=== PATIENT | female | born 1930 | race Caucasian/White ===

== ENCOUNTER 2019-01-10 13:03 | Inpatient (IN) ==
--- NOTE | 2019-01-10 14:26 | PROVIDER DOCUMENTATION ---
HPI-General Adult - General Chief Complaint: Weakness Stated Complaint: WEAKNESS Time Seen by Provider: 01/10/19 14:06 Source: patient Allergies/Adverse Reactions: Patient Allergies Allergy/AdvReac Type Severity Reaction Status Date / Time No Known Allergies Allergy Verified 01/10/19 19:16 Home Medications: Home Medication List Medication Instructions Recorded Confirmed Last Taken Type Aspirin 1 tab PO DAILY 01/10/19 01/10/19 Unknown History - History of Present Illness -Gen Adult Nature of Presenting Problems: Patient is an 88 yowf who complains of generalized weakness, low appetite, nausea after eating and fatigue x "several weeks" States she developed right- sided chest pain today. Denies fever or any other complaints. She is non-toxic in appearance. Review of Systems - Adult - REVIEW OF SYSTEMS - ADULT Constitutional: reports: no symptoms reported. denies: fever Eyes: reports: no symptoms reported Ears, Nose, Mouth & Throat: reports: no symptoms reported Cardiovascular: reports: see HPI Respiratory: reports: no symptoms reported Gastrointestinal: reports: see HPI Genitourinary: reports: no symptoms reported Musculoskeletal: reports: see HPI (gen weakness) Integumentary: reports: no symptoms reported Neurological: reports: no symptoms reported Psychiatric: reports: no symptoms reported Endocrine: reports: no symptoms reported Hematologic/Lymphatic: reports: no symptoms reported Allergic/Immunologic: reports: no symptoms reported All Other Systems: Reviewed and Negative Past History - Adult - PAST MEDICAL HISTORY-ADULT Review of Records: reports: Old Records Reviewed, Nursing Assessment Review, Medications Reviewed, Social history reviewed & non-contributory. Major Childhood Illnesses: reports: denies history Cardiovascular: reports: denies history Respiratory: reports: denies history Gastrointestinal: reports: denies history Obstetrical/Gynecological: reports: denies history Genitourinary: reports: denies history Musculoskeletal: reports: denies history Neurological: reports: denies history Endocrine/Immune: reports: denies history Other Conditions: reports: denies history - PRIOR SURGERIES/PROCEDURES Surgical/Procedure History: reports: reviewed, not pertinent - FAMILY HISTORY Family History: reviewed, not pertinent - SOCIAL HISTORY Smoking: non-smoker Physical Exam-General - PHYSICAL EXAM-ADULT Initial Vital Signs Reviewed: Yes - CONSTITUTIONAL General Appearance: alert, no apparent distress. negative: lethargic, slow to respond - EYES Eyes: PERRL/EOMI, pink conjunctivae - HEAD, EARS, NOSE, MOUTH & THROAT HENMT: normocephalic/atraumatic, moist mucous membranes - NECK Neck: full range of motion, supple, normal inspection - RESPIRATORY Respiratory: chest non-tender, lungs clear, normal breath sounds, no respiratory distress, no accessory muscle use - CARDIOVASCULAR Cardiovascular: normal peripheral pulses, regular rate, rhythm, no edema, no gallop, no JVD, no murmur - GASTROINTESTINAL (ABDOMEN) Abdominal Exam: normal bowel sounds, non tender, soft. negative: distended, guarding, rigid, rebound, tenderness, hernia, mass - MUSCULOSKELETAL Back Exam: normal inspection Extremity: normal range of motion, non-tender, normal inspection - SKIN Integumentary: normal color, warm/dry. negative: cyanosis, diaphoresis, ja undice, mottled, pallor - NEUROLOGIC Neurologic: control systems designer II-XII nml as tested, grossly normal, no motor/sensory deficits. negative: aphasia, facial droop, focal weakness, motor weakness, sensory deficit - PSYCHIATRIC Psych/Mental Status: normal mood/affect, normal thought content, normal thought process, oriented x 3 Progress - PLAN OF CARE/RESULTS Progress/Plan/Lab Results: Vital Signs - 8 hr 01/10/19 13:08 Temperature 98.1 F Pulse Rate 107 H Respiratory Rate 20 Blood Pressure 161/83 O2 Sat by Pulse Oximetry 98 Result Diagrams: 01/10/19 13:21 01/10/19 13:21 - REASSESSMENT Reassessment #1 Time Reassessed: 19:24 Status: other (Admitting HPS paged. Pt in agreement with admission plan.) - EKG 1 Time of EKG reading by physician:: 13:15 EKG Read and Signed by:: Carlos Yung EKG Interpretation (*Must complete 3 of following elements*): Abnormal Rate: 100 Rhythm: SR- poss. left atrial enlargement QRS: normal - XRAY 1 XRAY Study: Chest ([facility] - [address], [address], [place] [address] [facility] - [address] [place] [address] Department of Imaging Patient: MERCY RANGEL LAD Date: 01/10/19#: [id number] : 1930DM Status: PRE ERAcct#: [id number] Age/Sex: 88/FRoom/Bed: Loc: ED Ordering Physician: Ashkan Blancas Family Physician: None,PCP Reason for Procedure: weakness, right cp ____ Signed EXAM: CHEST-2 VIEWS INDICATION: weakness, right cp TECHNIQUE: 2 views COMPARISON: None. FINDINGS: The lungs are grossly clear. There is no discrete pleural fluid collection or pneumothorax. The cardiomediastinal silhouette and central vasculature are grossly unremarkable. IMPRESSION: No evidence of acute pathology by plain radiograph. Electronically signed by Zheng Shelton 01/10/2019 5:44 PM 01/10/191743 Interpreting Physician: Zheng Shelton MD Dictated Date/Time: 01/10/191743 cc: Ashkan Blancas; None,PCP) - CT/MRI 1 CT Study: Angiogram ([facility] - [address] [place] [address] [address] [id number] [facility] - [address] [place] [address] Department of Imaging Patient: MERCY RANGEL Date: 01/10/19#: [id number] : 1ADM Status: PRE ERAt#: [id number] Age/Sex: 88/FRoom/Bed: Loc: ED Ordering Physician: Ashkan Blancas Family Physician: None,PCP Reason for Procedure: elevated d-dimer, R cp, l eukocytosis ___ Signed EXAM: CT ANGIOGRAM PULMONARY ARTERIES - 01/10/2019 HISTORY: elevated d-dimer, R cp, leukocytosis TECHNIQUE: CT angiogram pulmonary arteries with intravenous contrast. Axial, coronal, and 3-D MIP images are obtained. COMPARISON: None. FINDINGS: There are pulmonary emboli at segmental and subsegmental branches at the right lower lobe. There is a pulmonary embolus and subsegmental branch of the left lower lobe. There is a small embolus at the superior left upper lobe. There are no large central pulmonary emboli identified. There is no indication of aortic dissection. There is some dependent atelectasis. There is no dense consolidation, pleural effusion, or pneumothorax There is a 7.5 x 4.5 mm mildly lobulated nodular opacity at the lateral left base. There is a large hiatal hernia. IMPRESSION: Pulmonary emboli at right lower lobe. Small pulmonary emboli at left lower and left upper lobes. Other incidental/nonacute findings as detailed above. This report was discussed with Dr. Aparicio on 01/10/2019 at 7:10 PM and was readback. Electronically signed by Zach Cartagena 01/10/2019 7:11 PM 01/10/19 1911 Interpreting Physician: Zach Cartagena MD Dictated Date/Time: 01/10/191855 cc: Ashkan Blancas; None,PCP) - CONSULTS/PCP/HOSPITALIST Notification #1 *Consult/PCP/Hospitalist*: Dr. Quiñones Time Discussed: 19:51 Reason/Comments: admission- pe, weakness Consult Disposition: Admit Departure - Departure Date of Disposition Decision: 01/10/19 Time of Disposition Decision: 19:24 DIAGNOSIS: Weakness Pulmonary emboli Qualifiers: Pulmonary embolism type: unspecified Chronicity: acute Acute cor pulmonale presence: without acute cor pulmonale Qualified Code(s): I26.99 - Other pulmonary embolism without acute cor pulmonale Disposition: ADMITTED INPATIENT 09 Certified Medical Emergency: Emergent Condition: Stable Referrals and Follow-Ups: None,PCP [Primary Care Provider] - - Critical Care Note This patient required my direct & personal management of CC.: No Attestation - Physician/ GEOFFREY Attestation Patient care was provided by Advanced Practice Provider:: Yes Advanced Practice Provider:: Ashkan Blancas Advanced Practice Provider documentation review:: The Mid-level provider documentation, treatment plan and medical decision making was reviewed by the physician who agrees with all treatment and medical decision making by the MLP. The physician spent face to face time with patient:: No Advanced Practice Provider documentation review:: Supervising physician onsite and consulted in the evaluation and care of this patient. The physician did not have a face to face encounter with the patient.
[2019-01-10] MEDS ORDERED: NS 1,000 ML IV ONE (14:27)
[2019-01-10 14:39] LABS: BASO# 0.06 X1000 (0.0-0.2); BASO% 0.3 % (0.0-0.8); EOS# 0.05 X1000 (0.0-0.7); EOS% 0.3 % (0.0-10.0); HEMATOCRIT 40.2 % (37.0-47.0); HEMOGLOBIN 13.3 g/dL (12.0-16.0); IMM GRAN# 0.06 X1000 (0.0-0.04); IMM GRAN% 0.3 % (0.0-0.5); LYMPH# 0.77 X1000 (1.2-3.4); LYMPH% 4.5 % (20.5-51.1); MCH 29.8 PG (27-31); MCHC 33.1 g/dL (33-37); MCV 89.9 FL (81-99); MONO# 1.56 X1000 (0.11-0.59); MONO% 9.1 % (1.7-9.3); MPV 12.7 FL (7.4-10.4); NEUT# 14.66 X1000 (1.4-6.5); NEUT% 85.5 % (42.2-75.2); PLT 238 X1000 (130-400); RBC 4.47 XMIL (4.2-5.4); RDW 13.7 % (11.5-14.5); WBC 17.16 X1000 (4.8-10.8)
[2019-01-10 14:48] LABS: INR 1.54; PROTIME 18.8 Seconds (11.0-16.0); PTT 29.2 Seconds (22.3-41.8)
[2019-01-10 15:23] LABS: ALB/GLOB RATIO 1.1; CALCIUM 10.2 mg/dL (8.8-10.2); CREATININE 0.9 mg/dL (0.5-0.9); MAGNESIUM 2.2 mg/dL (1.5-2.7); POTASSIUM 4.8 mmol/L (3.5-5.1); TOTAL BILIRUBIN 0.7 mg/dL (0.20-1.00); TOTAL PROTEIN 7.5 g/dL (6.3-8.3)
--- NOTE | 2019-01-10 15:28 | EKG Report ---
Test Performed on : 01/10/2019 1:10:41 PM Test Reason : cp, weakness Blood Pressure : / mmHG Vent. Rate : 100 BPM Atrial Rate : 100 BPM P-R Int : 134 ms QRS Dur : 080 ms QT Int : 332 ms P-R-T Axes : 032 -32 008 degrees QTc Int : 428 ms Normal sinus rhythm. Possible Left atrial enlargement Left axis deviation Left ventricular hypertrophy Inferior infarct , age undetermined Anterolateral infarct , age undetermined Abnormal ECG No previous ECGs available Unconfirmed Result
--- NOTE | 2019-01-10 17:47 | Diag Imaging Result Doc PS360 ---
EXAM: CHEST-2 VIEWS INDICATION: weakness, right cp TECHNIQUE: 2 views COMPARISON: None. FINDINGS: The lungs are grossly clear. There is no discrete pleural fluid collection or pneumothorax. The cardiomediastinal silhouette and central vasculature are grossly unremarkable. IMPRESSION: No evidence of acute pathology by plain radiograph. Electronically signed by Zheng Shelton 01/10/2019 5:44 PM
[2019-01-10 18:59] LABS: URINE SOURCE CLEAN CATCH
[2019-01-10 19:05] LABS: BILIRUBIN URINE SMALL (NEGATIVE); BLOOD URINE NEGATIVE (NEGATIVE); COLOR YELLOW; GLUCOSE URINE NEGATIVE (NEGATIVE); KETONE URINE 10 mg/dL (NEGATIVE); LEUKOCYTES URINE NEGATIVE (NEGATIVE); NITRITE URINE NEGATIVE (NEGATIVE); PROTEIN URINE 200 mg/dL (NEGATIVE); TURBIDITY URINE HAZY (CLEAR); UROBILINOGEN URINE 2 mg/dL (NORMAL)
[2019-01-10 19:07] LABS: UR EPITHELIAL CELLS <10 /HPF (<10); URINE BACTERIA NEGATIVE /HPF; URINE RBC <10 /HPF (<10); URINE WBC <10 /HPF (<10)
--- NOTE | 2019-01-10 19:14 | Diag Imaging Result Doc PS360 ---
EXAM: CT ANGIOGRAM PULMONARY ARTERIES - 01/10/2019 HISTORY: elevated d-dimer, R cp, leukocytosis TECHNIQUE: CT angiogram pulmonary arteries with intravenous contrast. Axial, coronal, and 3-D MIP images are obtained. COMPARISON: None. FINDINGS: There are pulmonary emboli at segmental and subsegmental branches at the right lower lobe. There is a pulmonary embolus and subsegmental branch of the left lower lobe. There is a small embolus at the superior left upper lobe. There are no large central pulmonary emboli identified. There is no indication of aortic dissection. There is some dependent atelectasis. There is no dense consolidation, pleural effusion, or pneumothorax There is a 7.5 x 4.5 mm mildly lobulated nodular opacity at the lateral left base. There is a large hiatal hernia. IMPRESSION: Pulmonary emboli at right lower lobe. Small pulmonary emboli at left lower and left upper lobes. Other incidental/nonacute findings as detailed above. This report was discussed with Dr. Aparicio on 01/10/2019 at 7:10 PM and was readback. Electronically signed by Zach Cartagena 01/10/2019 7:11 PM
[2019-01-10] MEDS ORDERED: LOVENOX 1 MG/KG SUBQ ONE (19:18)
[2019-01-10] MEDS ORDERED: MORPHINE IV PRN (20:22)
[2019-01-10] MEDS ORDERED: LOVENOX SUBQ ONE (20:30)
[2019-01-10] MEDS ORDERED: ZOFRAN IV PRN (22:20)
[2019-01-10] MEDS ORDERED: TYLENOL PO PRN (22:20)
[2019-01-11 06:01] LABS: BASO# 0.03 X1000 (0.0-0.2); BASO% 0.2 % (0.0-0.8); EOS% 0.7 % (0.0-10.0); HEMATOCRIT 35.8 % (37.0-47.0); HEMOGLOBIN 11.8 g/dL (12.0-16.0); IMM GRAN# 0.04 X1000 (0.0-0.04); IMM GRAN% 0.3 % (0.0-0.5); LYMPH# 0.78 X1000 (1.2-3.4); LYMPH% 5.4 % (20.5-51.1); MCH 29.6 PG (27-31); MCV 89.7 FL (81-99); MONO% 11.8 % (1.7-9.3); MPV 12.4 FL (7.4-10.4); NEUT% 81.6 % (42.2-75.2); PLT 211 X1000 (130-400); RBC 3.99 XMIL (4.2-5.4); RDW 13.7 % (11.5-14.5); WBC 14.45 X1000 (4.8-10.8)
[2019-01-11 06:30] LABS: AGAP 15; BUN 13 mg/dL (8-22); CALCIUM 8.6 mg/dL (8.8-10.2); CHLORIDE 97 mmol/L (98-107); COSMO 270; CREATININE 0.7 mg/dL (0.5-0.9); ESTIMATED GFR > 60; GLUCOSE 102 mg/dL (70-104); MAGNESIUM 1.9 mg/dL (1.5-2.7); POTASSIUM 4.1 mmol/L (3.5-5.1); SODIUM 135 mmol/L (136-145); TCO2 23 mmol/L (25-35)
[2019-01-11] MEDS: LOVENOX SUBQ SCH ×2 (08:58→20:36)
[2019-01-11] MEDS: ASPIRIN PO SCH (08:58)
--- NOTE | 2019-01-11 12:47 | PROGRESS NOTE ---
DATE: 01/11/2019 SUBJECTIVE: This morning Ms. Francis refers to be feeling a little better. Ms. Francis was admitted last night because she was found to have bilateral PE, now she refers to have been having generalized weakness and fatigue for the past 5 weeks. She has been almost bed- bound, easily tired, and not having good appetite. She says she has lost a total of about 10 pounds in the last 5 weeks. She came to the emergency room and was found to have bilateral PE. OBJECTIVE: Current vitals: Blood pressure is 160/70, pulse of 94, respirations 17, temperature 98.6. The patient was saturating 95% on room air. General: Ms. Francis is an 88-year-old female. She was in bed, in no distress. HEENT: Mucosa is pink and moist. Anicteric. Acyanotic. Neck: Supple. Chest: Clear to auscultation. No crepitations. No rhonchi. Cardiovascular: Regular rate and rhythm. Abdomen: Soft. There is some tenderness in the right upper quadrant and epigastrium, but no rebound. Extremities: No pedal edema. NURSING INFORMATICS SPECIALIST: The patient was awake, alert, and oriented. LABORATORY DATA: WBC is down to 14.45, hemoglobin is 11.8, platelet count of 211,000. Chemistry is also reviewed and completely unremarkable. IMAGING STUDIES: A chest x-ray showed no evidence of acute disease. CTA of the lungs did show pulmonary emboli at the right lower lobe, small pulmonary emboli at left lower and left upper lobes. ASSESSMENT AND PLAN: 1. Dyspnea on presentation, presumably related to PE. The patient is on Lovenox for anticoagulation. 2. Generalized weakness and easy fatigability of unclear etiology, associated with weight loss and poor appetite. All of these are concerning for an underlying malignancy. The CTA of the lung had some hypodensity lesions in the liver( this was not reported however). I am going to do a complete CT abdomen and pelvis with contrast to rule out any occult malignancy. 3. History of diarrhea, with intermittent constipation. Hopefully the CAT scan gives us some answers. We are also going to do stool studies to rule out any infectious etiology. cc: MD LIZ Cline
--- NOTE | 2019-01-11 16:39 | Diag Imaging Result Doc PS360 ---
EXAM: CT ABD/PELVIS W/IV CONT ONLY 01/11/2019 HISTORY: occult malignancy TECHNIQUE: This exam was performed using automated exposure control, adjustment of mA or kV according to patient size, and/or use of iterative reconstruction technique. COMMENT: There is a pleural-based nodule present in the lingula on image 10 measuring almost 9 mm in greatest dimension. This was also demonstrated on the previous thoracic study of 01/10/2019. There is increased interstitial opacity in the costophrenic sulci which was also present at the time the previous study. There is a small right pleural effusion. There are no previous abdominal examinations. There are numerous metastatic lesions in the liver. There is a conglomerate mass in the medial portion of the left hepatic lobe which exceeds 8 cm in diameter. There is atherosclerotic calcification and noncalcified plaque in the abdominal aorta. The maximum AP diameter is 2.4 cm. There are stones present in the left renal collecting system largest measuring 4 mm in diameter. There is a stone in the gallbladder measuring almost 17 mm in diameter. The gallbladder abuts the neoplastic process in the liver and there is some stranding between the gallbladder and adjacent structures. There is a stone near the neck of the gallbladder measuring 8 mm in diameter. There are periportal nodes which demonstrate some necrosis. They are probably neoplastic. One such node compresses the inferior vena cava measuring over 3 cm in diameter. The portal vein is patent. There is some fluid in the Morison's pouch region and around the liver generally. There is no evidence of hydronephrosis. There is a fairly large cyst in the lower pole of the left kidney. This measures 2.4 cm. There is no evidence of bowel obstruction. Pelvis: There has been previous appendectomy. There is free fluid in the cul-de-sac. There is diverticulosis in the sigmoid colon without definite diverticulitis. There is some areas of thickening of the mucosa most notably on image 137. This may be due to chronic diverticular disease however the possibility of neoplastic disease cannot be excluded. The urinary bladder is not distended. There is severe degenerative change in the right hip. There are degenerative disc and facet changes in the lumbar spine with scoliosis and convexity to the left. IMPRESSION: Extensive hepatic metastatic disease. The source of the metastatic disease is not clear however the possibility of carcinoma in the distal colon or in the gallbladder cannot be excluded. The possibility of a metastatic lesion in the lingula cannot be excluded. Ascites which may be malignant. Electronically signed by Flash Dias 01/11/2019 4:37 PM
--- NOTE | 2019-01-11 23:08 | HISTORY AND PHYSICAL ---
CHIEF COMPLAINT: Weakness. HISTORY OF PRESENT ILLNESS: This is an 88-year-old female who presents to the ER with generalized weakness, complaint of low appetite and nausea after eating. She states that she has lost 8 or 10 pounds in the last maybe 3 weeks. States she has had some right-sided chest pain which only started today. She does state that she has had decreased movement, just kind of been more fatigued than usual and not as active as usual. At any rate, the right-sided chest pain started today. She denied any fever, chills, cough. Before coming in, she was to the point where she was almost bedbound or at the very least easily tiring. She stated that she had some alternating diarrhea and constipation, but both of those had resolved. Again, she really had no other symptoms other than the chest pain and weakness to speak of. She also has no real medical history. Laboratory data was completed in the emergency room. She did have a mild elevation of her white blood cell count, but more importantly she had an elevated D-dimer greater than 20,000. A CTA was completed which did show bilateral pulmonary embolism. She will be started on treatment with Lovenox and placed in the hospital for further evaluation and treatment. PAST MEDICAL HISTORY: Denies. PREVIOUS SURGICAL HISTORY: Fibroid removal. SOCIAL HISTORY: No tobacco, alcohol or illicit drugs. FAMILY HISTORY: Denies history of problems with coagulopathies. Did state there was some hypertension in first-degree relatives. ALLERGIES: No known drug allergies. HOME MEDICATIONS: Aspirin 325 p.o. daily. REVIEW OF SYSTEMS: Fourteen-point review of systems conducted with the patient. Pertinent positives listed above in the HPI. All other systems reviewed and found to be negative. PHYSICAL EXAMINATION: VITAL SIGNS: Temperature 98.6, pulse 88, respirations 18, blood pressure 153/59, oxygen saturation 95% on room air. GENERAL: Pleasant 88-year-old female lying in the ER stretcher, answers all questions appropriately. She is in no acute distress. HEENT: Head is atraumatic, normocephalic. Pupils equal, round, reactive to light. Extraocular eye movement is intact. Sclerae are anicteric. Conjunctiva is pink. Oral mucosa is moist. NECK: Supple. No JVD. No thyromegaly. Trachea is midline. No cervical lymphadenopathy. CARDIAC: S1, S2 appreciated. No murmurs, gallops or rubs. LUNGS: Clear to auscultation bilaterally. No rhonchi, wheezes, rales. Symmetric rise and fall with respirations. ABDOMEN: Soft, nondistended, nontender. Bowel sounds present all 4 quadrants, normoactive. No pulsatile mass. No organomegaly. EXTREMITIES: No clubbing, cyanosis or edema. Two-plus pedal pulses bilaterally. GENITOURINARY: No bladder distention. Patient voids. Otherwise deferred. NEUROLOGICAL: Alert and oriented times 3. No focal motor deficit. Otherwise nonfocal examination. DIAGNOSTIC DATA: CT angio- shows pulmonary emboli of the right lower lobe, small pulmonary emboli at the left lower and left upper lobes. LABORATORY DATA: WBC 17.16. Hemoglobin 13.2. Hematocrit 40.2. Platelet count 13.7. D-dimer greater than 20,000. Sodium 133. Potassium 4.8. Chloride 91. Carbon dioxide 25. BUN 15. Creatinine 0.9. Glucose 129. Urine unremarkable. ASSESSMENT AND PLAN: 1. Bilateral pulmonary embolism. We will treat with dose of Lovenox 1 mg/kg IV q.12 hours. Morphine as needed for chest pain. Monitor oxygen and telemetry. 2. Weakness. This is likely related to #1. She did have some alternating diarrhea and constipation which seems to have resolved. We will continue to monitor. 3. Leukocytosis. This is possibly reactive. We will continue to monitor. Further recommendations per patient clinical course. Dictated by ERNESTO Mckeon for Hector Quiñones MD I have performed a face to face diagnostic evaluation. Labs/ Xrays- reviewed. Exam- Chest- clear, CV- regular. A/P- PTE- Admit, Lovenox, supplemental oxygen. Dr. Quiñones cc: ERNESTO Mckeon MD [facility]
[2019-01-12 07:32] LABS: BASO# 0.03 X1000 (0.0-0.2); BASO% 0.2 % (0.0-0.8); EOS# 0.17 X1000 (0.0-0.7); EOS% 1.3 % (0.0-10.0); IMM GRAN# 0.05 X1000 (0.0-0.04); IMM GRAN% 0.4 % (0.0-0.5); LYMPH# 1.05 X1000 (1.2-3.4); LYMPH% 8.1 % (20.5-51.1); MCH 29.7 PG (27-31); MCHC 33.3 g/dL (33-37); MCV 89.1 FL (81-99); MONO# 1.53 X1000 (0.11-0.59); MONO% 11.8 % (1.7-9.3); MPV 11.9 FL (7.4-10.4); NEUT# 10.13 X1000 (1.4-6.5); NEUT% 78.2 % (42.2-75.2); PLT 242 X1000 (130-400); RBC 4.04 XMIL (4.2-5.4); RDW 13.6 % (11.5-14.5); WBC 12.96 X1000 (4.8-10.8)
[2019-01-12 07:48] LABS: AGAP 14; ALB/GLOB RATIO 0.9; ALBUMIN 2.9 g/dL (3.5-5.0); ALKALINE PHOSPHATASE 188 U/L (32-104); BUN 13 mg/dL (8-22); CALCIUM 9.2 mg/dL (8.8-10.2); CHLORIDE 95 mmol/L (98-107); COSMO 266; CREATININE 0.7 mg/dL (0.5-0.9); ESTIMATED GFR > 60; GLUCOSE 86 mg/dL (70-104); GOT 74 U/L (10-30); GPT 31 U/L (10-36); POTASSIUM 3.8 mmol/L (3.5-5.1); SODIUM 133 mmol/L (136-145); TCO2 24 mmol/L (25-35); TOTAL BILIRUBIN 0.53 mg/dL (0.20-1.00); TOTAL PROTEIN 6.3 g/dL (6.3-8.3)
[2019-01-12] MEDS: LOVENOX SUBQ SCH ×2 (10:20→20:35)
[2019-01-12] MEDS: ASPIRIN PO SCH (10:20)
--- NOTE | 2019-01-12 14:28 | PROGRESS NOTE ---
DATE: 01/12/2019 SUBJECTIVE: This morning Ms. Francis refers to be doing a little better. She still continues to have very poor appetite but she says she is able to swallow a little bit. OBJECTIVE: Vitals: Blood pressure is 150/62, pulse of 95, respiration is 18, temperature 98.7 degrees, patient is saturating 97% on room air. General: Ms. Francis is an 88-year-old female she is in bed no distress. Mucosa is pink and moist. Anicteric, acyanotic. Neck: Supple. Chest: Good air entry bilateral. No crepitations, no rhonchi. Cardiovascular: Regular rate and rhythm. Abdomen: Soft, some tenderness in the right upper quadrant and epigastrium. No rebound, no guarding. Bowel sounds present. Extremities: No pedal edema. TRAVERTINE INSTALLER: Patient is awake, alert and oriented. LABORATORY DATA: WBC is down to 12.96, hemoglobin is 12.0, platelet count of 242,000. Chemistry is also reviewed, unremarkable for most part. AST 74, ALT is normalized, patient C-reactive protein is elevated and CEA is 298.6 which is extremely high. A CT scan of the abdomen and pelvis yesterday did show extensive hepatic metastatic disease, source of the metastasis is not very clear. Possibility of a distal colon or gallbladder cannot be entirely excluded. ASSESSMENT: 1. Dyspnea on presentation secondary to bilateral pulmonary embolism. Patient has been started on Lovenox. 2. Metastatic liver disease of unclear primary. There is elevated CEA, there is a concern of gastrointestinal tract. We pending GI evaluation for possible endoscopies. 3. History of diarrhea with intermittent constipation. 4. Poor appetite with weight loss most likely due to underlying malignancy. 5. Cholelithiasis with no mention of cholecystitis, will however do an ultrasound of the gallbladder to rule out any acute cholecystitis and CBD related pathology. So in general Ms Francis presented with generalized weakness, some mild discomfort swallowing and intermittent diarrhea with constipation and poor appetite. She says she has lost about 10 pounds in about a month . During the workup it is revealed that patient has extensive liver metastasis of unclear primary. There is some image on the distal colon which is concerning. CEA is remarkably elevated. We are pending evaluation from both GI and Heme- Onc. cc: MD LIZ Cline
--- NOTE | 2019-01-12 17:42 | Diag Imaging Result Doc PS360 ---
EXAM: US GB < RUQ (LIMITED) HISTORY: r/o acute cholecystitis TECHNIQUE: Right upper quadrant ultrasound COMPARISON: CT from 01/11/2019 FINDINGS: No abdominal aortic aneurysm. There is inferior vena cava is poorly seen. There are multiple hypoechoic masses scattered throughout the liver. These were described on the recent CT. No ascites in the right upper quadrant. Normal right kidney. No hydronephrosis. There are several stones within the gallbladder. The gallbladder is contracted. The common bile duct measures 4 mm. There is a hypodense lesion adjacent to the pancreatic head. This is better seen on the recent CT. IMPRESSION: 1.Contracted gallbladder. Cholelithiasis. 2.Hepatic metastases Electronically signed by Tomás Zheng 01/12/2019 5:39 PM
[2019-01-13] MEDS: LOVENOX SUBQ SCH ×2 (10:05→21:13)
[2019-01-13] MEDS: ASPIRIN PO SCH (10:05)
[2019-01-13] MEDS ORDERED: SODIUM CHLORIDE 0.9% INJ SCH (12:15)
--- NOTE | 2019-01-13 12:26 | PROGRESS NOTE ---
DATE: 01/13/2019 SUBJECTIVE: This morning, Ms. Francis refers to be doing well. Denies any new complaints. She is just waiting for GI to evaluate her. She seems to be tolerating more of her diet. OBJECTIVE: Vital Signs: Blood pressure is 174/77, pulse of 90, respirations 18, temperature 98.8 degrees. General: Ms. Francis is an 88-year-old female. She is in bed. No distress. HEENT: Mucosa is pink and moist. Anicteric. Acyanotic. Neck: Supple. Chest: There is good air entry bilaterally. No crepitations. No rhonchi. Cardiovascular: Regular rate and rhythm. No murmurs, no rubs, no gallops. GI: Abdomen was soft, minimally tender in the right upper quadrant. No rebound. No guarding. 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 No focal neurological deficit. Extremities: No pedal edema. LABORATORY DATA: None for today. IMAGING STUDIES: No imaging studies for today. An ultrasound, which was done yesterday, shows contracted gallbladder and cholelithiasis. There is also hepatic metastasis. ASSESSMENT: 1. Dyspnea on presentation secondary to bilateral pulmonary embolism. The patient is on therapeutic Lovenox. 2. Metastatic liver disease of unclear primary. The patient has elevated CEA. There is a concern that the primary is gastrointestinal. A CT scan was done, which also shows some abnormality in the colon. We are pending Gastroenterology evaluation. 3. History of diarrhea with intermittent constipation noted. 4. Poor appetite with weight loss, most likely due to underlying malignancy. 5. Cholelithiasis with no evidence of acute cholecystitis. We will continue to monitor, and the patient will follow up with Surgery on an outpatient basis. In general, I think Ms. Francis seems to be doing remarkably well. Dysphagia seems to have improved some. However, she still remains with some mild difficulty. There is a plan for both esophagogastroduodenoscopy and colonoscopy tomorrow per Gastroenterology orders. cc: Francis Alvarez MD
[2019-01-13] MEDS: PROTONIX IV SCH (13:23)
[2019-01-13] MEDS ORDERED: GOLYTELY PO ONE (14:00)
--- NOTE | 2019-01-13 15:15 | CONSULTATION ---
DATE OF CONSULTATION: 01/13/2019 REASON FOR CONSULT: Elevated CEA and liver metastasis on Imaging. HISTORY OF PRESENT ILLNESS: Ms. Celestina Francis is an 88-year-old female who had come to the ER on Sunday complaining of weakness, tired, dizziness, nausea, vomiting, and abdominal pain, which she rated her pain scale as 4. It was dull, and she felt like she had soreness everywhere in her left upper quadrant. She also stated that she has lost 10 pounds in the last few weeks. She has not eaten well, and she does not feel like eating. She felt that her pain was near her right chest, but denied radiating to the back. She has denied any fever, chills, or flu-like symptoms, but she said that she has been having nausea, vomiting, and periods of constipation and diarrhea. She does not have any real medical problems, but said that she had some blood clots in her lungs, for which she takes aspirin at home. PAST MEDICAL HISTORY: Pulmonary embolism and bleeding from the rectum. PAST SURGICAL HISTORY: Tubaligation. ALLERGIES: No known drug allergies. MEDICATIONS: Aspirin and vitamins FAMILY HISTORY: Mother had stomach cancer, hypertension, diabetes. SOCIAL HISTORY: She lives with her daughter, and has 5 kids. Denied smoking, drinking alcohol, or any illicit drugs. REVIEW OF SYSTEMS: As per HPI. Otherwise, 12-point review of systems is negative. PHYSICAL EXAMINATION: Vital Signs: Temperature is 98.8 degrees, pulse is 90, respirations are 18, blood pressure is 174/77, oxygen saturation is 97% on room air. Weight 145.6 pounds, BMI 29.5. kg per meter square. General: She is an 88-year-old female, lying in bed, and is answering all of the questions appropriately. She is in no acute distress. HEENT: Pale conjunctivae. No icterus. PERRL. Neck: Supple. Cardiac: Regular rate and rhythm. No murmurs, gallops, or rubs heard. Lungs: Clear to auscultation in all anterior and posterior weller. No abnormal breath sounds heard on auscultation. Abdomen: Soft, distended, and tender in the upper quadrant. Bowel sounds heard in all 4 quadrants actively. Extremities: No cyanosis, clubbing, or edema. pedal pulses 2+ present bilaterally Neurologic: Alert and oriented x3. Nonfocal. Cranial nerves II to XII are grossly intact. LABORATORY DATA: WBCs 12.96, RBCs 4.4, hemoglobin 12.3, hematocrit 36, platelet count is 242,000. Her PT is 18.8, INR is 1.54. D-dimer is less than 20. Sodium is 133, potassium is 3.8, chloride is 95, carbon dioxide is 24, anion gap 14, BUN 13, creatinine 0.7, calcium is 9.2. Magnesium is 1.9. AST is 74, ALT is 31, alkaline phosphatase 188. Her CEA is 298.6. IMAGING: Abdominal ultrasound showed contracted gallbladder, cholelithiasis, hepatic metastasis. Abdomen and pelvis CT showed extensive hepatic metastatic disease, possibility of metastatic lesions in the lingula, ascites may be malignant. Pulmonary arteriogram, CT angiogram, pulmonary arteries showed pulmonary emboli at right lower lobe, small pulmonary emboli at the left lower lobe and the left upper lobe. Chest x-ray showed no evidence of acute pathology by plain radiograph. ASSESSMENT AND PLAN: Dysphagia Anemia Bilateral pulmonary embolism Weakness Constipation/diarrhea Liver metastasis Increased CEA Gallstone PLAN: The patient is currently on Lovenox for PE per her primary care team, we will hold her morning dose of Lovenox for now. We will plan to do an EGD and colonoscopy tomorrow, will start her on clear liquids and NPO past midnight. Start her on Protonix BID, continue antiemetics Risk, benefits and alternatives of the procedure has been discussed with the patient and the family, patient and family acknowledges understanding of the plan of care. Further plan of care will be based on the EGD and colonoscopy findings. This plan was discussed with Dr. Weller, patient and the family. Thank you for your consultation. Please call for any further questions or concerns. Dictated by ERNESTO Oquendo for Simone Weller MD cc: Simone Weller MD I have seen the patient myself and agree with the above plan of care. Please call us with any further questions or concerns. MTDD
--- NOTE | 2019-01-13 20:02 | HEMO/ONC CONSULTATION ---
DATE: 01/13/2019 CONSULTATION REQUESTED BY: Hospitalist service. REASON FOR CONSULTATION: Consultation is for liver metastases and bilateral pulmonary emboli. HISTORY OF PRESENT ILLNESS: Ms. Francis is an 88-year-old female who presented to the emergency department with generalized weakness, as well as weight loss, low appetite, and nausea. During her workup, she was found to have bilateral PTEs. She was also found to have extensive hepatic metastatic disease on a CT of the abdomen and pelvis. The patient does report having a decreased appetite and a weight loss of around 8 to 10 pounds over the last 4 to 5 weeks. She lives at home with her daughter. Currently, she has no respiratory symptoms and is breathing on room air. She continues to have nausea, but this seems to be well managed currently. PAST MEDICAL HISTORY: The patient denies any significant past medical history. In fact, she reports that she has been in good health up until the last 4 to 5 weeks. PREVIOUS SURGERY: Fibroid removal. SOCIAL HISTORY: She denies any alcohol, illicit drug, or tobacco use. She lives with her daughter. Up until about 4 to 5 weeks ago, she has been functional and ambulating unassisted. FAMILY HISTORY: Hypertension in a first-degree relative, but no other significant history noted. REVIEW OF SYSTEMS: A 12 point review of systems has been completed and is negative except for as expressed in HPI. PHYSICAL EXAMINATION: Vital Signs: Temperature 98.3 degrees, heart rate 89, respirations 16, blood pressure 166/73, O2 saturation 97% on room air. General: This is an elderly female who is lying in her hospital bed. There is no one at bedside. Head: Normocephalic, atraumatic. Eyes: Pupils equal, round, reactive. Ears, Nose, Throat, Neck, Mouth: Oral mucosa does appear to be normal. Cardiovascular: S1, S2 heard. There are no murmurs, gallops, rubs appreciated. Respiratory: Chest is clear. Gastrointestinal: Abdomen is soft and nondistended. Musculoskeletal: Arthritic changes noted, but no other bony abnormalities noted. Extremities: Trace bilateral extremity edema noted. Neurologic: Patient is alert and oriented. She answers questions appropriately. LABS AND STUDIES: White blood cells from yesterday are 12.96, hemoglobin 12.0, hematocrit 36.0, platelet count 242,000. Sodium 133, potassium 3.8, chloride 95, CO2 24, BUN 13, creatinine 0.7, glucose 86. CEA is 298.6. CT angiogram, as per above, is positive for pulmonary embolus on the right lower lobe, and small pulmonary emboli on the left lower and left upper lobes. CT of the abdomen and pelvis, as per above, shows extensive hepatic metastatic disease. No obvious primary noted. She has ascites as well. ASSESSMENT AND PLAN: 1. 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 GI consult is pending. There are orders in to receive an endoscopy and colonoscopy tomorrow. I did discuss diagnosis of stage IV cancer, though that is not confirmed yet, with the patient. We discussed what we usually do in that case, which is due palliative chemotherapy versus hospice. The patient can discuss further with her family. As of our last discussion, she was still planning on going forth with scopes for examination and likely confirmation of the diagnosis. We will continue to follow along with the patient while she is here. We will continue to make recommendations as her hospital course proceeds. 2. Bilateral pulmonary thromboemboli. She is on appropriate Lovenox at this time. Continue. Consider transitioning to direct oral anticoagulant (DOAC) as soon as possible. 3. Nausea. Seems to be well managed currently. Continue antiemetics. 4. Weight loss, likely secondary to metastatic disease, as per number 1. We want to thank you for consulting us on Ms. Francis, and will continue to follow along. Dictated by SEHRIE Thomas for Felipa Gutiérrez MD cc: Felipa Gutiérrez MD I have seen and examined the patient and the above note reflects my history, physical exam, assessment and plan. Felipa HILL
[2019-01-14] MEDS: PROTONIX IV SCH (01:22)
[2019-01-14] MEDS: ASPIRIN PO SCH (08:51)
[2019-01-14] MEDS ORDERED: PHENERGAN PO PRN (10:14)
[2019-01-14] MEDS ORDERED: ELIQUIS PO SCH (10:15)
[2019-01-14] MEDS ORDERED: MARINOL PO SCH (10:15)
--- NOTE | 2019-01-14 10:54 | PROGRESS NOTE ---
DATE: 01/14/2019 SUBJECTIVE: This morning Ms. Francis refers to be doing fairly okay, and no new complaints. She referred that she does not want to do any colonoscopy because she cannot genuinely tolerate the bowel prep. She also does not want to do any intervention because she says she has been told that the disease is stage IV, and she does not think that any intervention or even getting to know the pathology will help her in any way. She wants us to consult hospice and be discharged as soon as possible. Her daughter was at the bedside at the time of this encounter. OBJECTIVE: Vital signs: Blood pressure 146/73, pulse of 97, respirations 16, and temperature 98.6 degrees. General: Ms. Francis is an 88-year-old female. She is in bed in no distress. Mucosa is pink and moist. HEENT: Anicteric. Acyanotic. Neck: Supple. Chest: Clear to auscultation. No crepitations. No rhonchi. Cardiovascular: Regular rate and rhythm GI: Abdomen is soft, minimally tender in the right upper quadrant. No rebound. No guarding. 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 There are no focal neurological deficits. LABORATORY DATA: None for today. ASSESSMENT: 1. Dyspnea on presentation secondary to bilateral pulmonary embolism, improved. The patient's Lovenox was withheld because of anticipated colonoscopy, but she has been declined to wanting to do even EGD so we are going to restart her back on her anticoagulants. 2. Metastatic liver disease of unclear primary, presumably from the GI tract. 3. History of diarrhea with intermittent constipation concerning for underlying malignancy. 4. Poor appetite with weight loss, most likely due to the underlying malignancy. The patient seems to have slightly improved on her appetite. We are going to also put her on dronabinol. 5. Cholelithiasis with no evidence of acute cholecystitis noted. So in general, Ms. Francis refers to be doing well. She does not want to undergo any colonoscopy. I also even introduced the possibility of doing a biopsy of the liver under CT scan guidance. However, she and the daughter do not see any benefits since Ms. Francis does not want to undergo any adjuvant therapy. They have also requested hospice evaluation so we have consulted palliative nurse. Ms. Francis will be a potential discharge today after the hospice consult. cc: Francis Alvarez MD [facility]
[2019-01-14 12:11] VITALS: BP 150/77
--- NOTE | 2019-01-14 23:44 | PROVIDER PROGRESS NOTE ---
Progress Note S: Overnight, patient refused prep and decided this morning she did not want to go through with any further workup of probable metastatic GI malignancy. She has discussed this with family and Dr. Gutiérrez and is being discharged home with hospice. O: Last Vital Signs Temp 98.6 F 01/14/19 12:00 Pulse 88 01/14/19 12:00 Resp 18 01/14/19 12:00 BP 150/77 01/14/19 12:00 Pulse Ox 95 01/14/19 12:00 Height 4 ft 11 in Weight 146 lb GEN: elderly, NAD HEENT: anicteric, MMM NECK: supple, no JVD PULM: CTAB, no wheezing CV: RRR, no murmurs ABD: soft NT/ND, BS+ EXT: no cce NEURO: nonfocal LABS: none A/P: Mr. Celestina Francis is a 88 year old woman who was admitted with generalized weakness and chest pain found to have bilateral PE and metastatic c ancer, probable GI origin. The patient was seen by oncology. She is on therapeutic lovenox. GI consulted for endoscopic evaluation and biopsy. However, she does not want further diagnostic workup or treatment and is being discharged with hospice services, which is understandable given her advance age. Will sign off. Please call with questions or concerns.
[2019-01-15] MEDS ORDERED: PROTONIX PO SCH (07:00)
--- NOTE | 2019-01-15 13:05 | DISCHARGE SUMMARY ---
ADMISSION DATE: 01/10/2019 DISCHARGE DATE: 01/14/2019 DISPOSITION: Home. FOLLOWUP: [facility]. INVASIVE PROCEDURES DONE DURING THIS ADMISSION: None. IMAGING STUDIES OF SIGNIFICANCE: A chest x-ray showed no evidence of any pathology. A CTA of the lungs showed pulmonary emboli at the right lower lobe. Small pulmonary emboli at the left lower and left upper lobes. A CT scan of the abdomen and pelvis showed extensive hepatic metastases. The source of that was unclear. There was some suggestion that it could have come from the distal colon. An ultrasound of the abdomen also showed contracted gallbladder, cholelithiasis, and hepatic metastases. ADMISSION DIAGNOSES: 1. Bilateral pulmonary emboli. 2. Weakness. 3. Leukocytosis. DISCHARGE DIAGNOSES: 1. Dyspnea on exertion on presentation secondary to bilateral pulmonary embolism. 2. Bilateral pulmonary embolism with moderate clot burden. 3. Metastatic liver disease of unclear primary, presumably from gastrointestinal tract. 4. History of diarrhea and intermittent constipation, concerning for underlying malignancy. 5. Poor appetite with weight loss secondary to underlying malignancy. 6. Cholelithiasis with no evidence of acute cholecystitis. DISCHARGE MEDICATIONS: 1. Apixaban 10 mg b.i.d. for 7 days, and then 5 mg b.i.d. 2. Dronabinol 2.5 mg p.o. daily. 3. Phenergan 25 mg p.o. every 6 hours p.r.n. 4. Pantoprazole 40 mg p.o. daily. PRESENTING COMPLAINT: Generalized weakness. HISTORY OF PRESENTING COMPLAINT: Ms. Francis is an 88-year-old female with no past medical history, who comes in because of generalized weakness, low appetite, and weight loss. She was found to be slightly hypoxemic. A CTA revealed bilateral PE. Ms. Francis was subsequently admitted for medical care. HOSPITAL COURSE: Ms. Francis was admitted to the medical floor, was started on Lovenox for the VTEs. The workup to elucidate why she has VTE led to a CT scan of the abdomen and pelvis, which showed remarkable hepatic metastasis. There was a concern that the distal colon had some image suggestive of a mass. The patient's CEA was remarkably elevated, so discussion was held for possible EGD and colonoscopy. GI was consulted. Unfortunately, Ms. Francis referred that she does not want to do any intervention, and she does not also want any treatment, even if she is found to have any cancer. Her daughter was at the bedside at the time of our discussions, and she is also in agreement with her mom. Palliative Medicine was subsequently consulted. Ms. Francis and the family made a decision to go home on hospice. She is subsequently being discharged. She is clinically stable. She is eating some more. She has elected to continue care with [facility]. During the hospital course, Ms. Francis was seen by Dr. Gutiérrez from Hematology/Oncology, and Dr. Weller from a GI standpoint. TIME SPENT: Time spent for discharge was 36 minutes. cc: Francis Alvarez MD MTDD
== END 2019-01-14 14:44 | disposition hospice, home (50) | DRG 176 ==
LOC: ED 13:03 → SUATTDRO 21:03 → 2N 21:03 → 1N 01-11 16:03
PROVIDERS: ATTEND Internal Medicine

== ENCOUNTER 2019-01-18 17:20 | Inpatient (IN) ==
[2019-01-18 17:47] LABS: ALLEN TEST YES; BE -19.3 mmoll (-3.0-3.0); BLOOD TYPE ARTERIAL; HCO3-(ACT) 9.9 mmoll (20.0-26.0); METHB 1.1 % (0.0-1.5); O2(CT) 16.4 mL/dL (15.0-23.0); O2HB 97.6 % (95.0-99.0); PCO2(98.6) 26 mmHg (35-45); PO2(98.6) 399 mmHg (60-100); SAMPLE BLOOD; SAO2 100.6 % (95.0-100.0); SRATE 15 BPM; THB 11.2 g/dL (11.5-17.4); TVOL 45 mL
[2019-01-18 17:49] LABS: MODALITY VENTILATOR; pH(98.6) 7.12 (7.35-7.45)
[2019-01-18] MEDS ORDERED: NS 1,000 ML IV ONE (17:52)
[2019-01-18] MEDS ORDERED: NS 1,000 ML ONE (17:56)
--- NOTE | 2019-01-18 17:59 | Diag Imaging Result Doc PS360 ---
CHEST-PORTABLE - 01/18/2019 INDICATION: arrest. tube placement COMPARISON: None FINDINGS: There is an endotracheal tube in good position at T4-T5. Lung volumes are severely low. There is some minimal central atelectasis or infiltrate. Heart size is top normal. IMPRESSION: Good nasogastric tube placement. Electronically signed by Clifton Jackson 01/18/2019 5:57 PM
[2019-01-18] MEDS ORDERED: DIPRIVAN 1% IV STA (18:11)
[2019-01-18 18:12] LABS: PTT 38.2 Seconds (22.3-41.8)
[2019-01-18] MEDS ORDERED: DIPRIVAN 1% 1,000 MG/100 ML BOTTLE IV SCH ×2 (18:15→18:30)
[2019-01-18 18:19] LABS: INR 5.06; PROTIME 48.7 Seconds (11.0-16.0)
--- NOTE | 2019-01-18 18:20 | EKG Report ---
Test Performed on : 01/18/2019 5:54:43 PM Test Reason : post arrest Blood Pressure : / mmHG Vent. Rate : 133 BPM Atrial Rate : 133 BPM P-R Int : 132 ms QRS Dur : 148 ms QT Int : 292 ms P-R-T Axes : 061 106 -20 degrees QTc Int : 434 ms Sinus tachycardia. Possible Left atrial enlargement Right bundle branch block Inferior infarct , age undetermined Abnormal ECG No previous ECGs available Unconfirmed Result
[2019-01-18 18:35] LABS: BASO# 0.17 X1000 (0.0-0.2); BASO% 0.7 % (0.0-0.8); EOS# 0.16 X1000 (0.0-0.7); EOS% 0.6 % (0.0-10.0); HEMATOCRIT 37.8 % (37.0-47.0); HEMOGLOBIN 11.8 g/dL (12.0-16.0); IMM GRAN# 0.55 X1000 (0.0-0.04); IMM GRAN% 2.2 % (0.0-0.5); LYMPH# 5.55 X1000 (1.2-3.4); LYMPH% 21.7 % (20.5-51.1); MCHC 31.2 g/dL (33-37); MCV 92.9 FL (81-99); MONO# 2.24 X1000 (0.11-0.59); MONO% 8.8 % (1.7-9.3); MPV 11.4 FL (7.4-10.4); NEUT# 16.87 X1000 (1.4-6.5); PLT 411 X1000 (130-400); RBC 4.07 XMIL (4.2-5.4); RDW 14.1 % (11.5-14.5); WBC 25.54 X1000 (4.8-10.8)
[2019-01-18 18:49] LABS: ALBUMIN 2.9 g/dL (3.5-5.0); CALCIUM 9.6 mg/dL (8.8-10.2); POTASSIUM 3.5 mmol/L (3.5-5.1); TOTAL BILIRUBIN 0.76 mg/dL (0.20-1.00); TOTAL PROTEIN 5.8 g/dL (6.3-8.3)
[2019-01-18 19:04] LABS: URINE SOURCE CATH
[2019-01-18 19:07] LABS: CK INDEX 4.5 (0.0-2.5); CK-MB 16.24 ng/mL (0.0-5.0)
--- NOTE | 2019-01-18 19:08 | PROVIDER DOCUMENTATION ---
This chart was entered by Jona Burr Scribe, acting as scribe for Heraclio Andrade DO. HPI-Cardiopulmonary Arrest - General Source: patient, EMS (life enrichment assistant) - History of Present Illness-C/P Arrest Reason for Code Blue?: other (revived by ems) Witnessed arrest?: Yes Noted by:: family Bystander CPR?: Yes (family) CPR initiated before doctor arrival?: No Initial Findings: unresponsive, V. Fib Treatment initiated prior to doctor arrival?: Initiated intubated - Pre-hospital Treatment EMS Initial Findings:: unresponsive Pre-hospital Treatment: Initiated oxygen, Initiated intubated, Initiated CPR, Initiated defibrillated, Initiated epinephrine, Initiated other (dopamine drip) <Heraclio Andrade - Last Filed: 01/18/19 19:07> <Jaron Hardy - Last Filed: 01/18/19 20:08> - General Chief Complaint: Full Arrest Stated Complaint: post cardiac arrest Time Seen by Provider: 01/18/19 17:37 - History of Present Illness-C/P Arrest Initial Comments: 88 yof presents to the ed v/a EMS with full arrest. EMS stated family started CPR before EMS arrived on arrival pt was unresponsive pt was shocked once and given 3 epis. EMS stated took 8 mins to get to home , took 15 mins to get a pulse and total downtime was 25 mins. EMS stated pt was probably watching tv and possibly had a seizure with possible chocking on vomit. EMS stated pt was in V- fib when arrived at home. pt on arrival to ed was on Ravin machine and unresponsive. (Heraclio Andrade) Review of Systems - Adult - REVIEW OF SYSTEMS - ADULT ROS:: unobtainable per condition Constitutional: reports: no symptoms reported Eyes: reports: no symptoms reported Ears, Nose, Mouth & Throat: reports: no symptoms reported Cardiovascular: reports: no symptoms reported Respiratory: reports: no symptoms reported Gastrointestinal: reports: no symptoms reported Genitourinary: reports: no symptoms reported Musculoskeletal: reports: no symptoms reported Integumentary: reports: no symptoms reported Neurological: reports: no symptoms reported Psychiatric: reports: no symptoms reported Endocrine: reports: no symptoms reported Hematologic/Lymphatic: reports: no symptoms reported Allergic/Immunologic: reports: no symptoms reported All Other Systems: Reviewed and Negative <Heraclio Andrade - Last Filed: 01/18/19 19:07> Past History - Adult - PAST MEDICAL HISTORY-ADULT Review of Records: reports: Old Records Reviewed, Nursing Assessment Review, Medications Reviewed, Social history reviewed & non-contributory. Major Childhood Illnesses: reports: denies history Cardiovascular: reports: denies history Respiratory: reports: denies history Gastrointestinal: reports: denies history Obstetrical/Gynecological: reports: denies history Genitourinary: reports: denies history Musculoskeletal: reports: denies history Neurological: reports: denies history Endocrine/Immune: reports: denies history Other Conditions: reports: denies history - IMMUNIZATION STATUS Childhood Immunizations: See Nurse Assessment Flu Vaccine: See Nurse Assessment - FAMILY HISTORY Family History: reviewed, not pertinent <Heraclio Andrade - Last Filed: 01/18/19 19:07> Physical Exam-General - PHYSICAL EXAM-ADULT Initial Vital Signs Reviewed: Yes - CONSTITUTIONAL General Appearance: obtunded - EYES Eyes: other (4 mm fixed) - HEAD, EARS, NOSE, MOUTH & THROAT HENMT: normocephalic/atraumatic - NECK Neck: supple - RESPIRATORY Respiratory: other (intubated/ breath sounds equal bilateral) - CARDIOVASCULAR Cardiovascular: tachycardia (138) - GASTROINTESTINAL (ABDOMEN) Abdominal Exam: distended (occaational bowl sound) - MUSCULOSKELETAL Extremity: no pedal edema Peripheral Pulses: radial (R): 1+ - SKIN Integumentary: normal color, warm/dry - NEUROLOGIC Neurologic: other (unresponsive / gcs 3) <Heraclio Andrade - Last Filed: 01/18/19 19:07> Progress - PLAN OF CARE/RESULTS Result Diagrams: 01/18/19 17:50 01/18/19 17:50 - EKG 1 Time of EKG reading by physician:: 17:59 EKG Read and Signed by:: Heraclio Andrade EKG Interpretation (*Must complete 3 of following elements*): Abnormal Rate: 133 Rhythm: sinus tach QRS: RBB NH Interval: normal ST Wave: non-specific ST changes Prior EKG Comparison: no prior EKG - CHANGE OF SHIFT REPORT (ED Provider) 1 Report Given and Care Transferred to:: Dr Hardy Time of Transfer: 19:00 <Heraclio Andrade - Last Filed: 01/18/19 19:07> - PLAN OF CARE/RESULTS Result Diagrams: 01/18/19 17:50 01/18/19 17:50 <Jaron Hardy - Last Filed: 01/18/19 20:08> - PLAN OF CARE/RESULTS Progress/Plan/Lab Results: Vital Signs - 8 hr 01/18/19 17:31 01/18/19 17:33 01/18/19 17:52 Pulse Rate 138 H 134 H Respiratory Rate 18 Blood Pressure 161/103 161/103 135/96 O2 Sat by Pulse Oximetry 100 100 01/18/19 17:55 01/18/19 18:02 01/18/19 18:35 Pulse Rate 133 H 128 H 116 H Respiratory Rate 20 Blood Pressure 135/96 127/77 O2 Sat by Pulse Oximetry 100 100 100 01/18/19 18:43 01/18/19 18:53 01/18/19 19:03 Pulse Rate 117 H 115 H 116 H Respiratory Rate Blood Pressure 122/93 135/80 139/90 O2 Sat by Pulse Oximetry 100 100 100 Laboratory Results - last 24 hr 01/18/19 01/18/19 01/18/19 17:41 17:50 17:50 WBC RBC Hgb Hct MCV MCH MCHC RDW Std Deviation Plt Count MPV Immature Gran % (Auto) Neut % (Auto) Lymph % (Auto) Alpine % (Auto) Eos % (Auto) Baso % (Auto) Immature Gran # (Auto) Neut # (Auto) Lymph # (Auto) Alpine # (Auto) Eos # (Auto) Baso # (Auto) PT INR PTT (Actin FS) Specimen Type ARTERIAL Sample Site L RADIAL pH 7.12 L* pCO2 26 L pO2 399 H HCO3 9.9 L Base Excess -19.3 L Oxyhemoglobin 97.6 ABG O2 Sat (Calculated) 16.4 ABG O2 Saturation 100.6 H ABG Carboxyhemoglobin 1.80 ABG Methemoglobin 1.1 Bayron Test YES A-a O2 Difference 282.0 Total Hemoglobin 11.2 L Lactate 13.30 H* Liter Flow 15.0 Blood Gas Modality VENTILATOR Spontaneous Rate 15 FiO2 % 100.0 Tidal Volume 45 PEEP 5.0 Sodium 139 Potassium 3.5 Chloride 100 Carbon Dioxide 12 L Anion Gap 27 BUN 10 Creatinine 1.0 H Estimated GFR/1.73 m2 49 BUN/Creatinine Ratio 10 Glucose 274 H POC Glucose Calculated Osmolality 286 Calcium 9.6 Total Bilirubin 0.76 AST 123 H ALT 51 H Alkaline Phosphatase 277 H Creatine Kinase 361 H Creatine Kinase Index 4.5 H CK-MB (CK-2) 16.24 H Troponin T 0.510 H* Total Protein 5.8 L Albumin 2.9 L Globulin 2.9 Albumin/Globulin Ratio 1.0 Plasma Lactate Urine Source Urine Color Urine Turbidity Urine pH Ur Specific [place] Urine Protein Ur Glucose (Stick) Ur Ketones (Stick) Urine Blood Urine Nitrite Urine Bilirubin Urobilinogen Dipstick Urine Leukocytes Urine WBC (Auto) Urine RBC (Auto) U Epithel Cells (Auto) Urine Bacteria (Auto) Urine Crystals Small Round Cells Urine Casts Urine Yeast-like Cells 01/18/19 01/18/19 01/18/19 17:50 17:50 17:50 WBC 25.54 H RBC 4.07 L Hgb 11.8 L Hct 37.8 MCV 92.9 MCH 29.0 MCHC 31.2 L RDW Std Deviation 14.1 Plt Count 411 H MPV 11.4 H Immature Gran % (Auto) 2.2 H Neut % (Auto) 66.0 Lymph % (Auto) 21.7 Alpine % (Auto) 8.8 Eos % (Auto) 0.6 Baso % (Auto) 0.7 Immature Gran # (Auto) 0.55 H Neut # (Auto) 16.87 H Lymph # (Auto) 5.55 H Alpine # (Auto) 2.24 H Eos # (Auto) 0.16 Baso # (Auto) 0.17 PT 48.7 H INR 5.06 PTT (Actin FS) 38.2 Specimen Type Sample Site pH pCO2 pO2 HCO3 Base Excess Oxyhemoglobin ABG O2 Sat (Calculated) ABG O2 Saturation ABG Carboxyhemoglobin ABG Methemoglobin Bayron Test A-a O2 Difference Total Hemoglobin Lactate Liter Flow Blood Gas Modality Spontaneous Rate FiO2 % Tidal Volume PEEP Sodium Potassium Chloride Carbon Dioxide Anion Gap BUN Creatinine Estimated GFR/1.73 m2 BUN/Creatinine Ratio Glucose POC Glucose Calculated Osmolality Calcium Total Bilirubin AST ALT Alkaline Phosphatase Creatine Kinase Creatine Kinase Index CK-MB (CK-2) Troponin T Total Protein Albumin Globulin Albumin/Globulin Ratio Plasma Lactate 11.7 H* Urine Source Urine Color Urine Turbidity Urine pH Ur Specific [place] Urine Protein Ur Glucose (Stick) Ur Ketones (Stick) Urine Blood Urine Nitrite Urine Bilirubin Urobilinogen Dipstick Urine Leukocytes Urine WBC (Auto) Urine RBC (Auto) U Epithel Cells (Auto) Urine Bacteria (Auto) Urine Crystals Small Round Cells Urine Casts Urine Yeast-like Cells 01/18/19 01/18/19 17:51 18:52 WBC RBC Hgb Hct MCV MCH MCHC RDW Std Deviation Plt Count MPV Immature Gran % (Auto) Neut % (Auto) Lymph % (Auto) Alpine % (Auto) Eos % (Auto) Baso % (Auto) Immature Gran # (Auto) Neut # (Auto) Lymph # (Auto) [place]pine # (Auto) Eos # (Auto) Baso # (Auto) PT INR PTT (Actin FS) Specimen Type Sample Site pH pCO2 pO2 HCO3 Base Excess Oxyhemoglobin ABG O2 Sat (Calculated) ABG O2 Saturation ABG Carboxyhemoglobin ABG Methemoglobin Bayron Test A-a O2 Difference Total Hemoglobin Lactate Liter Flow Blood Gas Modality Spontaneous Rate FiO2 % Tidal Volume PEEP Sodium Potassium Chloride Carbon Dioxide Anion Gap BUN Creatinine Estimated GFR/1.73 m2 BUN/Creatinine Ratio Glucose POC Glucose 201 H Calculated Osmolality Calcium Total Bilirubin AST ALT Alkaline Phosphatase Creatine Kinase Creatine Kinase Index CK-MB (CK-2) Troponin T Total Protein Albumin Globulin Albumin/Globulin Ratio Plasma Lactate Urine Source CATH Urine Color YELLOW Urine Turbidity HAZY Urine pH 6.5 Ur Specific [place] 1.009 Urine Protein 200 A Ur Glucose (Stick) 150 A Ur Ketones (Stick) 20 A Urine Blood MODERATE A Urine Nitrite NEGATIVE Urine Bilirubin NEGATIVE Urobilinogen Dipstick NORMAL Urine Leukocytes NEGATIVE Urine WBC (Auto) 10-20 A Urine RBC (Auto) <10 U Epithel Cells (Auto) >10 A Urine Bacteria (Auto) NEGATIVE Urine Crystals NONE SEEN Small Round Cells TRANS PRESENT Urine Casts GRANULAR PRESENT Urine Yeast-like Cells NONE SEEN Orders Category Date Time Status Childress Cath Insertion ORDERED Care 01/18/19 17:38 Active Neurological Check Q12-HR ASSESS Care 01/18/19 18:11 Active CHEST-PORTABLE [RAD] Stat Exams 01/18/19 17:36 Completed ABG [RESP] Routine Lab 01/18/19 17:41 Completed CBC WITH ELECTRONIC DIFF [HEME] Stat Lab 01/18/19 17:50 Completed CK PROFILE [SP CHEM] Stat Lab 01/18/19 17:50 Completed COMPREHENSIVE METABOLIC PANEL [CHEM] Stat Lab 01/18/19 17:50 Completed LACTATE, PLASMA [CHEM] Stat Lab 01/18/19 17:50 Completed PROTIME WITH INR [COAG] Stat Lab 01/18/19 17:50 Completed PTT [COAG] Stat Lab 01/18/19 17:50 Completed TROPONIN T Stat Lab 01/18/19 17:50 Completed UA NIMS W/REFLEX CULT [URINALYSIS] Stat Lab 01/18/19 18:52 Completed URINE CULTURE [RM] Routine Lab 01/18/19 19:40 Received URINE MANUAL MICROSCOPIC [URINALYSIS] Stat Lab 01/18/19 18:52 Completed 0.9% Sodium Chloride Inj [Ns] 1,000 ml Med 01/18/19 17:56 Discontinued .ROUTE As directed 0.9% Sodium Chloride Inj [Ns] 1,000 ml Med 01/18/19 17:52 Active IV 250 mls/hr Propofol [Diprivan 1%] Med 01/18/19 18:11 Discontinued 10 mg IV STAT STA Propofol [Diprivan 1%] Med 01/18/19 18:15 Active 1,000 mg in 100 ml IV As Directed mls/hr Propofol [Diprivan 1%] Med 01/18/19 18:30 Active 1,000 mg in 100 ml IV As Directed mls/hr Ventilator Order Stat Oth 01/18/19 18:11 Active EKG [EKG] Stat Ther 01/18/19 17:38 Draft Pt signed out to me by dr. andrade, pt is intubated on sedation and pressors, spoke with Dr. Artis and will admit to ICU, family is at the bedside and has been updated (Jaron Hardy) Departure - Departure Date of Disposition Decision: 01/18/19 Certified Medical Emergency: Emergent - Critical Care Note This patient required my direct & personal management of CC.: Yes <Heraclio Andrade - Last Filed: 01/18/19 19:07> - Departure Time of Disposition Decision: 20:07 - Critical Care Note Total Time (mins): 39 Critical Care Statement: This patient required my direct personal management to treat or rule out processes, the absence of which, could potentiallly result in sudden, clinically significant life or limb threatening deterioration. <Jaron Hardy - Last Filed: 01/18/19 20:08> - Departure DIAGNOSIS: Cardiac arrest Disposition: ADMITTED INPATIENT 09 Condition: Stable Attestation - Physician/ GEOFFREY Attestation Patient care was provided by Advanced Practice Provider:: No The physician spent face to face time with patient:: Yes Advanced Practice Provider documentation review:: Supervising physician onsite and consulted in the evaluation and care of this patient. The physician did have a face to face encounter with the patient. <Heraclio Andrade - Last Filed: 01/18/19 19:07> This chart was documented by the indicated scribe, (Jona Burr, Krysta) and accurately reflects the services I performed and decisions made by Raymond avelar Thomas E., DO, as attested by the provider's signature.
[2019-01-18 19:19] LABS: BILIRUBIN URINE NEGATIVE (NEGATIVE); BLOOD URINE MODERATE (NEGATIVE); COLOR YELLOW; GLUCOSE URINE 150 mg/dL (NEGATIVE); KETONE URINE 20 mg/dL (NEGATIVE); LEUKOCYTES URINE NEGATIVE (NEGATIVE); NITRITE URINE NEGATIVE (NEGATIVE); PH URINE 6.5; PROTEIN URINE 200 mg/dL (NEGATIVE); SP GRAVITY URINE 1.009; TURBIDITY URINE HAZY (CLEAR); UROBILINOGEN URINE NORMAL (NORMAL)
[2019-01-18 19:25] LABS: UR EPITHELIAL CELLS >10 /HPF (<10); URINE BACTERIA NEGATIVE /HPF; URINE RBC <10 /HPF (<10)
[2019-01-18 19:47] LABS: URINE CASTS GRANULAR PRESENT; URINE CRYSTALS NONE SEEN; URINE SMALL ROUND CELLS TRANS PRESENT; URINE YEAST NONE SEEN
[2019-01-18] MEDS ORDERED: ZOFRAN IV PRN (21:27)
[2019-01-18] MEDS ORDERED: ZOSYN 3.375 GM in NS 50 ML IV SCH (21:30)
[2019-01-18] MEDS ORDERED: DUONEB (A & A) INH PRN (21:30)
[2019-01-18] MEDS ORDERED: NS 1,000 ML IV SCH (21:30)
[2019-01-18] MEDS ORDERED: FLAGYL 500 MG/NS 500 MG/100 ML IVPB IV SCH (21:45)
[2019-01-18] MEDS ORDERED: LOVENOX SUBQ SCH (21:45)
--- NOTE | 2019-01-18 22:18 | HISTORY AND PHYSICAL ---
CHIEF COMPLAINT: Full arrest. HISTORY OF PRESENT ILLNESS: The patient is a very unfortunate 88-year-old female, who apparently has recently been diagnosed with pulmonary emboli and discharged from the hospital on 01/14/2019, to hospice. She has known history of metastatic liver disease with poor appetite and weight loss. She presented back to the ER tonight in full arrest. Apparently she had a full arrest at home and was found unresponsive. Her son apparently had done CPR for several minutes before EMS arrived, approximately 10 minutes later. It took approximately 15 minutes after arrival to get a pulse. EMS had noted that she was in ventricular fibrillation upon arrival. She was intubated, shocked, given 3 epinephrine and brought to the ER. SOCIAL HISTORY: She lives at home and is cared for by her family. Does not smoke, drink or use illicit substances. PAST MEDICAL HISTORY: Prior to coming to the hospital at the end of December, she had previously seen a physician approximately 5 or 6 years ago. While in the hospital this last admission, she was diagnosed with bilateral pulmonary emboli. She was noted to have a leukocytosis. She was diagnosed with metastatic liver disease of an unclear primary, and weight loss due to her malignancy. She was also noted to have cholelithiasis, with no evidence of cholecystitis. MEDICATIONS: The patient was discharged home on Eliquis, Marinol 2.5, Phenergan p.r.n. and pantoprazole. FAMILY HISTORY: Noncontributory. REVIEW OF SYSTEMS: Unobtainable from Ms. Francis, as she currently is ventilated. Family notes that she had been at home in her usual state of health prior to them finding her down. Uncertain how long it was before she passed out and when she was found; however, we know that she was down at least 25 minutes. As noted, CPR was initiated. She was defibrillated, given epinephrine, intubated, placed on oxygen and brought to the ER, where she was placed on dopamine. Family denies any previous fevers, chills, cough, shortness of breath. Denies any previous knowledge of chest pain. She has been losing weight. Does obviously have bilateral pulmonary emboli causing chronic shortness of breath. She has been having intermittent diarrhea and constipation, as noted prior to her previous admission. Denies any blood in her stool. Denies any swelling in her lower extremities. PHYSICAL EXAMINATION: VITAL SIGNS: Reviewed. Pulse 130s, respiratory rate 18, BP 161/103 to 139/96. She is currently mechanically ventilated with an O2 saturation of 100%. HEENT: Normocephalic, atraumatic. NECK: Supple. No apparent JVD. CARDIOVASCULAR: Tachycardia. CHEST: Currently mechanically intubated and appears well ventilated, as she has O2 saturation of 100%. LUNGS: Rhonchi throughout. No current wheezing. ABDOMEN: Soft, nondistended. EXTREMITIES: She currently is on propofol. She has no edema. NEUROLOGIC: Unable to assess, although her pupils are 4 mm and appear fixed. She is unresponsive with a Sukhdev coma scale of 3. LABORATORY DATA: WBCs 25. She was 12.9 upon last check in the hospital. AST 123, ALT 51, alkaline phosphatase 277. CPK is elevated at 361 with a troponin 0.51 and an index of 4.5. C- reactive protein elevated at 85. BNP is 1108. Plasma lactate 11.7 and a CEA elevated at 298 from her previous admission. ASSESSMENT: 1. Full arrest. 2. Read acute hypoxic and hypercapnic respiratory failure requiring mechanical ventilation. 3. Leukocytosis at 25. 4. Bilateral pulmonary emboli, currently being treated. 5. Metastatic liver cancer with elevated liver function tests. 6. Moderate protein-calorie malnutrition. 7. Probable aspiration. 8. Probable acute myocardial infarction. 9. Others. PLAN: We will admit the patient in the hospital. She has been placed on mechanical ventilation. There seems to be some discussion between the daughter and the son as to what constitutes life support. Although the son states that mother does not want to be on life support, he seems to have the understanding that mother wants everything done unless her illness is due to her cancer. I did attempt to discuss with him that of course this illness is due to her cancer. She has recently had bilateral pulmonary emboli which clearly have not gone away in 5 days. She has metastatic cancer, which is untreatable. She, in fact, apparently declined even doing EGD and colonoscopy with biopsies less than 10 days ago. It does appears as though she has had an IA. He continues to want to have CPR performed. I discussed him that we will honor that. We are going to place her on fluids. Continue dopamine for pressure support. Continue antibiotics for probable aspiration. Recheck her enzymes and we will follow. cc: Nick Benavides MD
[2019-01-18] MEDS ORDERED: DOPAMINE 400 MG/D5W 400 MG/500 ML IV.SOLN IV SCH (23:30)
[2019-01-18 23:32] LABS: ALLEN TEST YES; BE -19.8 mmoll (-3.0-3.0); BLOOD TYPE ARTERIAL; HCO3-(ACT) 9.5 mmoll (20.0-26.0); O2(CT) 15.6 mL/dL (15.0-23.0); O2HB 95.7 % (95.0-99.0); PCO2(98.6) 22 mmHg (35-45); PO2(98.6) 92 mmHg (60-100); SAMPLE BLOOD; SAO2 98.2 % (95.0-100.0); SRATE 15 BPM; THB 11.5 g/dL (11.5-17.4); TVOL 450 mL
[2019-01-18] MEDS ORDERED: DOPAMINE 800 MG/D5W 800 MG/500 ML IV.SOLN ONE (23:32)
[2019-01-18] MEDS ORDERED: SODIUM BICARBONATE 8.4% IV PUSH ONE (23:41)
[2019-01-18] MEDS ORDERED: SODIUM BICARBONATE 8.4% ONE ×2 (23:44→23:54)
[2019-01-18] MEDS ORDERED: EPINEPHRINE SYRINGE ONE (23:56)
[2019-01-19 00:30] LABS: MODALITY RESUSC BAG; pH(98.6) 7.14 (7.35-7.45)
[2019-01-19 00:39] LABS: CK INDEX 8.2 (0.0-2.5); CK-MB 108.4 ng/mL (0.0-5.0)
[2019-01-19 00:41] LABS: CALCIUM 9.2 mg/dL (8.8-10.2); MAGNESIUM 2.1 mg/dL (1.5-2.7)
[2019-01-19 01:59] VITALS: BP 143/102
--- NOTE | 2019-01-19 03:09 | EKG Report ---
Test Performed on : 01/19/2019 00:04:59 AM Test Reason : Post Cardiac Arrest Blood Pressure : / mmHG Vent. Rate : 081 BPM Atrial Rate : 081 BPM P-R Int : 208 ms QRS Dur : 104 ms QT Int : 382 ms P-R-T Axes : 071 145 -33 degrees QTc Int : 443 ms Normal sinus rhythm. Incomplete right bundle branch block Right ventricular hypertrophy with repolarization abnormality Inferior infarct (cited on or before 10-JAN-2019) ACUTE PA / STEMI Consider right ventricular involvement in acute inferior infarct Abnormal ECG When compared with ECG of 10-JAN-2019 13:10, (Unconfirmed) Incomplete right bundle branch block is now present Criteria for Anterior infarct are no longer present Criteria for Anterolateral infarct are no longer present Unconfirmed Result
[2019-01-19] MEDS ORDERED: ATROPINE SYRINGE IV ONE (04:44)
[2019-01-19] MEDS ORDERED: CALCIUM CHLORIDE SYRINGE IV ONE (04:44)
[2019-01-19] MEDS ORDERED: EPINEPHRINE SYRINGE IV ONE (04:44)
--- NOTE | 2019-01-19 05:54 | DISCHARGE SUMMARY ---
ADMISSION DATE: 01/18/2019 DISCHARGE DATE: 01/19/2019 ADMISSION DIAGNOSES: 1. Cardiopulmonary arrest. 2. Acute hypoxic and hypercapnic respiratory failure requiring mechanical ventilation. 3. Leukocytosis. 4. Bilateral pulmonary emboli, currently being treated. 5. Metastatic liver cancer with elevated liver function tests. 6. Moderate protein calorie malnutrition. 7. Possible aspiration. 8. Probable acute myocardial infarction. HOSPITAL COURSE: Ms. Francis is an 88-year-old female who had recently been diagnosed with pulmonary emboli and was discharged from the hospital on 01/14/2019 to hospice. She does have a history of metastatic liver disease with poor appetite and weight loss. Today, prior to arrival to the ER on 01/18/2019, she did suffer a cardiopulmonary arrest at home and was found unresponsive. Family members at home apparently did go ahead and initiate CPR, which was continued by EMS. The patient was brought into the ER. She was noted to be in ventricular fibrillation upon arrival. She was defibrillated, intubated. They did provide emergency ACLS medications. She did have return of ROSC. She was noted to have leukocytosis, elevated CK, and troponin's, as well as liver enzymes. There was concern for possible myocardial infarction as well. While the patient was awaiting inpatient bed, still in the ER, I was notified by the patient's nurse that her heart rate, which had been slightly tachycardic in the one-teens range had dropped to approximately to the 50s to 60s range. She was noted to have an oxygen saturation that was in the 80s, though we are uncertain at this time if this was correct. She did not have a good [*] on the monitor. We were having difficulty obtaining automatic and manual blood pressures. We did go ahead and place the patient on a dopamine drip. We also did obtain arterial blood gases, which did show that her PO2 was 92, though she was still acidotic with a pH of 7.14, pCO2 of 22, HCO3 of 9.5, with a base excess of -19.8, and O2 saturation of 98.2%. I did go ahead and give 1 amp of sodium bicarbonate. Though the patient, even with initiation of dopamine, did remain bradycardic, her heart rate did begin to decline from the mid 50s very quickly down to the 30s. We pushed 0.5 mg of atropine, though the patient did continue to become bradycardic and did become asystole on the monitor. No pulse was palpated. CPR was initiated. ACLS protocol was initiated as well. Dr. Hardy, the ER physician, did immediately respond to the patient's bedside as well as the attending hospital physician, Dr. Benavides. We did give emergency ACLS medications of epinephrine, atropine, as previously mentioned, sodium chloride, an additional amp of sodium bicarbonate. During rhythm checks, the patient did have, as previously mentioned, asystole, PEA, and on 1 pulse check was in ventricular fibrillation, which we did defibrillate her at 120 joules. The patient's code was initiated at 2339 hours. She did have return of ROSC at 2352 hours. The patient's daughter was at bedside. We did recommend her to call her brother as well, which she did so. We did order stat labs of BMP, magnesium, CK, and troponin, as well as an EKG. Her EKG did show sinus rhythm with incomplete right bundle branch block as well as a possible acute inferior infarct. Dr. Benavides did review this EKG as well. Unfortunately, even with continuation of her dopamine, the patient did again start to become bradycardic. We did go ahead and give a total of 1 mg atropine, though ultimately she did have bradycardia, which was PEA on the monitor. This was at 0021 hours on 01/19/2019. We did initiate CPR, ACLS protocol was started. We did give 1 mg atropine. CPR was only briefly started when the patient's daughter at bedside and the patient's son requested that we stop resuscitative efforts. The patient's daughter's name is Jen and her son's name is Mohsen. We did follow their request and at 12:22 a.m. all resuscitative measures were ended. The time of is 12:22 a.m. There was no heart sounds auscultated. There was no palpable pulse present. The patient was in asystole on the monitor. Dr. Benavides did give the order to end resuscitative measures. Dictated by ERNESTO Medina for Nikc Benavides MD cc: Nick Benavides MD
--- NOTE | 2019-01-19 07:52 | DISCHARGE SUMMARY ---
ADMISSION DATE: 01/18/2019 DISCHARGE DATE: 01/19/2019 DISCHARGE ADDENDUM: Ms. Francis is an 88-year-old female who actually was recently admitted to the hospital, diagnosed with bilateral pulmonary emboli and metastatic liver disease. While she was in the hospital, she refused any further treatment and decided to go home on hospice and to be Do Not Resuscitate. Unfortunately, late in the evening on the , she had a full cardiac arrest as noted on the HPI. She was intubated, brought to the hospital, CPR again was performed. Apparently, had been down approximately 25 minutes or longer prior to getting a pulse back. Her son, however, was adamant that everything be done because he did not feel as though this was due to the liver cancer and Ms. Francis was only Do Not Resuscitate if it was related to liver cancer. Unfortunately, as expected, she continued to remain unstable, again became bradycardic, and required CPR again. We called the son and had him come back to the ER as he had left. Her cardiac enzymes, as expected, went up. Discussed with the family that liver cancer causes clotting disorders and she has a pulmonary emboli. Discussed that pulmonary emboli increase her risk of heart disease and she is having an acute CO. Therefore, this certainly is secondary to her liver cancer. After the third time she was coded over a couple of hours, the son decided at that point to honor Ms. Francis's wishes and allow her to be Do Not Resuscitate. She was made Do Not Resuscitate and at 12:22 a.m. on 01/19/2019. cc: Nick Benavides MD
== END 2019-01-19 00:22 | disposition expired ==
LOC: ED 17:20 → EDIPHOLD 22:48
PROVIDERS: ATTEND Family Medicine